=== PATIENT | male | born 1995 | race Caucasian/White ===

== ENCOUNTER 2020-04-25 19:26 | Emergency (ER) | payer OTHER ==
[~2020-04-25] VITALS: Ht 177.8 cm; Wt 169.6 kg
[~2020-04-25 19:26] MED LIST: CIPRO500 MG PO; COLACE100 MG PO; FLA500 PO; LAC PO
[2020-04-25 19:35] VITALS: BP 145/91; Ht 177.8 cm; Wt 169.6 kg
== END 2020-04-25 23:35 | disposition home or self-care (01) ==
LOC: EDSEX 19:26 → ED 19:26
DX: R10.32 Left lower quadrant pain (principal)